=== PATIENT | female | born 1945 | race Two or more races ===

== ENCOUNTER → 2022-07-23 12:12 | Outpatient (CLI) | payer OTHER | END | disposition home or self-care (01) | LOC: LAB 12:12 → EKG 12:12 | PROVIDERS: ATTEND Obstetrics & Gynecology Gynecology | DX: I10 Essential (primary) hypertension (principal); R07.9 Chest pain, unspecified ==

== ENCOUNTER 2022-08-06 06:00 | Day surgery (SDC) | payer OTHER ==
[~2022-08-06 06:00] MED LIST: CLONAZEPAM2 MG PO; GABAPENTIN100 M2 PO; PANADOL EXTRA500 MG PO; ZESTRIL20 MG PO
[2022-08-06] MEDS ORDERED: MACROBID 100 M100 MG PO (11:15)
[2022-08-06] MEDS ORDERED: ULTRACET PO (11:15)
== END 2022-08-06 14:15 | disposition home or self-care (01) ==
LOC: CIR.AMB 06:00
PROVIDERS: ATTEND Obstetrics & Gynecology Gynecology
DX: N81.10 Cystocele, unspecified (principal); I10 Essential (primary) hypertension; Z91.013 Allergy to seafood; Z88.0 Allergy status to penicillin; Z91.041 Radiographic dye allergy status; Z91.018 Allergy to other foods; Z20.822 Contact with and (suspected) exposure to COVID-19; Z86.16 Personal history of COVID-19